=== PATIENT | male | born 1960 | race Caucasian/White ===

== ENCOUNTER → 2024-01-21 08:01 | Outpatient (REF) | payer OTHER, SELFPAY | LOC: MRI 08:01 | PROVIDERS: ATTENDING PHYSICIAN Physician Assistant; FAMILY PHYSICIAN Internal Medicine | DX: M54.14 Radiculopathy, thoracic region (principal); M17.11 Unilateral primary osteoarthritis, right knee | CPT/HCPCS: 72146; 73721 ==

== ENCOUNTER → 2024-12-25 09:01 | Outpatient (REF) | payer OTHER, SELFPAY | LOC: HWRCS 09:01 | PROVIDERS: ATTENDING PHYSICIAN Nurse Practitioner Adult Health | DX: I77.810 Thoracic aortic ectasia (principal) | CPT/HCPCS: 93306 ==

== ENCOUNTER 2025-05-29 06:27 | Day surgery (SDC) | payer OTHER, SELFPAY | END 2025-05-29 11:17 | disposition home or self-care (01) | LOC: GI 06:27 | PROVIDERS: ATTENDING PHYSICIAN Specialist | DX: Z12.11 Encounter for screening for malignant neoplasm of colon (principal); K57.30 Diverticulosis of large intestine without perforation or abscess without bleeding; D12.0 Benign neoplasm of cecum; D12.3 Benign neoplasm of transverse colon; K63.89 Other specified diseases of intestine | CPT/HCPCS: 45385; 45380; 88305 ==